=== PATIENT | female | born 1980 | race Caucasian/White ===

== ENCOUNTER 2017-10-10 07:57 | Emergency (ER) | payer BC ==
[~2017-10-10] VITALS: Ht 167.6 cm; Wt 59.1 kg
[~2017-10-10 07:57] MED LIST: DHA PO; PRENATAL1 TA1 PO
[2017-10-10 08:00] VITALS: BP 104/62
[2017-10-10 08:35] LABS: INFLUENZA A NEGATIVE; INFLUENZA B POSITIVE
[2017-10-10] MEDS ORDERED: TAMIFLU 75MG75 MG PO (09:30)
[2017-10-10] MEDS ORDERED: TUSS PO (09:31)
[2017-10-10] MEDS ORDERED: PROAIR HFA0.09 MG/AC IH (09:58)
[2017-10-10 10:33] VITALS: PULSE 70; TEMP 97
== END 2017-10-10 10:33 | disposition home or self-care (01) ==
LOC: COL.ER 07:57
PROVIDERS: Emergency Medicine
DX: J10.1 Influenza due to other identified influenza virus with other respiratory manifestations (principal)

== ENCOUNTER → 2024-02-26 | Outpatient (CLI) | payer BC ==
[~2024-02-26] MED LIST changes: +PROAIR HFA0.09 MG/AC IH; +TAMIFLU 75MG75 MG PO; +TUSS PO
== END ==
LOC: MC.RAD 10:03
DX: N60.01 Solitary cyst of right breast (principal)